=== PATIENT | female | born 1955 | race Caucasian/White ===

== ENCOUNTER 2016-04-05 07:39 | Day surgery (SDC) | payer BC ==
[2016-04-04 08:25] VITALS: BMI 22.6
[~2016-04-05 07:39] MED LIST: LACTATED RINGERS 1,000 ML IV SCH
[2016-04-05] MEDS ORDERED: LIDOCAINE 1% 20 ML VIAL (10MG/ML) FOR IV START INTRADERMA ONE (07:42)
[2016-04-05 07:54] VITALS: TEMP 97.4
[2016-04-05] MEDS ORDERED: PROPOFOL 10 MG/ML 20 ML VIAL IV ONE (09:03)
[2016-04-05] MEDS ORDERED: LIDOCAINE 1% INJ 10MG/ML (20 ML MDV) ONE (09:03)
[2016-04-05] MEDS ORDERED: GLUCAGON 1 MG/ML VIAL ONE (09:03)
--- NOTE | 2016-04-05 09:18 | P.GSHP ---
History of Present Illness H&P Date: 04/05/16 Chief Complaint: Screening colonoscopy This is a 60-year-old female referred from Lianna Guidry and Lesli Vance. Patient presents today for screening colonoscopy. She's never had a colonoscopy before. Past Medical History Past Medical History: Cancer Additional Past Medical History / Comment(s): SCREENING. 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 HAS SMOKED FOR PAST 40 YEARS Past Drug Use History: None Reported - Past Family History Brother(s) Family Medical History: Cancer Mother Family Medical History: Cancer Medications and Allergies Home Medications Medication Instructions Recorded Confirmed Type No Known Home Medications [No 04/04/16 04/04/16 History Known Home Medications] Allergies Allergy/AdvReac Type Severity Reaction Status Date / Time No Known Allergies Allergy Verified 04/04/16 08:18 Surgical - Exam Vital Signs Temp Pulse Resp BP Pulse Ox 97.4 F L 83 16 119/78 98 04/05/16 07:48 04/05/16 07:48 04/05/16 07:48 04/05/16 07:48 04/05/16 07:48 - General well developed, no distress - Eyes PERRL - ENT normal pinna - Neck no masses - Respiratory normal expansion - Cardiovascular Rhythm: regular - Abdomen Abdomen: soft, non tender Assessment and Plan Plan: We'll perform screening colonoscopy.
[2016-04-05] MEDS ORDERED: LACTATED RINGERS 1,000 ML IV ONE (09:54)
--- NOTE | 2016-04-05 09:55 | P.OP ---
Date of Procedure: 04/05/16 Preoperative Diagnosis: Screening colonoscopy Postoperative Diagnosis: Colonic polyp. Procedure(s) Performed: Colonoscopy Anesthesia: MAC Surgeon: Javier Burgos Pathology: other (Colon polyps) Condition: stable Disposition: PACU Description of Procedure: The patient's placed on the endoscopy table lateral position. She received IV sedation. Digital rectal exam was performed which revealed no abnormalities. The flexible colonoscope was then placed patient anus and passed throughout the entire colon. The ileocecal valve was visualized. Cecum was seen. This appeared normal. Scope was brought back and in the right colon there is small polyp seen was removed with snare. Scope was then brought further and in the proximal transverse colon there were polyp seen was removed with a forcep and stapler. The scope was withdrawn remainder of the transverse colon appeared normal. In the descending; was mild diverticular changes. Scope was then brought back the rectum this appeared normal. Scope was withdrawn for patient.
[2016-04-05 10:13] VITALS: BP 112/74; PULSE 67; RESP 18
== END 2016-04-05 10:56 | disposition home or self-care (01) ==
LOC: ORWHC2ENDO 07:39
PROVIDERS: ATTEND Surgery
DX: Z12.11 Encounter for screening for malignant neoplasm of colon (principal); D12.3 Benign neoplasm of transverse colon; K57.30 Diverticulosis of large intestine without perforation or abscess without bleeding; Z85.828 Personal history of other malignant neoplasm of skin; F17.210 Nicotine dependence, cigarettes, uncomplicated
CPT/HCPCS: 88305; 45380; 45385; J1610; J2001; J2704; 99153

== ENCOUNTER → 2020-01-13 | Outpatient (CLI) | payer BC ==
[2020-01-13 12:19] VITALS: BP 154/83; PULSE 76; RESP 18; TEMP 97.9
--- NOTE | 2020-01-13 13:29 | P.GSHP ---
History of Present Illness H&P Date: 01/13/20 Chief Complaint: right breast stage IA invasive ductal cancer Pooja is a 64-year-old white female seen in consultation for Dr. Roca who had a recent ultrasound core biopsy of the right breast which revealed invasive ductal carcinoma. This was detected on a routine screening mammogram. She had not felt any lumps masses or nodules of concern in her breast. She is not complaining of any pain in her breast. No abnormal nipple discharge or skin changes. No lesions of concern were detected in the left breast. Caffeine: none Nicotine: 5-6 cigarettes per day Theophylline: daily Family History: maternal grandfather: cancer ? type sister: bladder cancer brother: colon and lung lcancer patient: basal cell twice/nose Hormonal history: menarche: 13 , breast fed: no, age at first : 23 menopause: 45 BCP: 4 years hormones: none Surgical history: Mohs chemosurgery for her nose Medical history: none Social History: Nicotine: 5-6 cigarettes per day Alcohol: Occasional Drugs: Negative - Constitutional Constitutional: Denies chills, Denies fever - EENT Eyes: denies blurred vision, denies pain Ears: deny: decreased hearing, tinnitus Ears, nose, mouth and throat: Denies headache, Denies sore throat - Breasts Breasts: bilateral: as per HPI - Cardiovascular Cardiovascular: Denies chest pain, Denies shortness of breath - Respiratory Respiratory: Denies cough, Denies 7 - Gastrointestinal Gastrointestinal: Denies abdominal pain, Denies diarrhea, Denies nausea, Denies vomiting - Genitourinary (Female) Genitourinary: Denies dysuria, Denies hematuria - Menstruation Menstruation: Reports postmenopausal - Musculoskeletal Musculoskeletal: Denies myalgias - Integumentary Integumentary: Denies pruritus, Denies rash - Neurological Neurological: Denies numbness, Denies weakness - Psychiatric Psychiatric: Denies anxiety, Denies depression - Endocrine Endocrine: Denies fatigue, Denies weight change - Hematologic/Lymphatic Comment: none Hematologic/Lymphatic: Reports as per HPI Past Medical History Past Medical History: Cancer Additional Past Medical History / Comment(s): SCREENING. 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 HAS SMOKED FOR PAST 40 YEARS Past Drug Use History: None Reported - Past Family History Brother(s) Family Medical History: Cancer Mother Family Medical History: Cancer Medications and Allergies Home Medications Medication Instructions Recorded Confirmed Type Ergocalciferol [Vitamin D2] 50,000 unit PO Q7D 01/13/20 01/13/20 History Allergies Allergy/AdvReac Type Severity Reaction Status Date / Time No Known Allergies Allergy Verified 01/13/20 12:14 Surgical - Exam Vital Signs Temp Pulse Resp BP Pulse Ox 97.9 F 76 18 154/83 97 01/13/20 12:14 01/13/20 12:14 01/13/20 12:14 01/13/20 12:14 01/13/20 12:14 BMI 24.8 - General well developed, well nourished, no distress - Eyes normal ocular movement - ENT no hearing loss, no congestion - Neck no masses, trachea midline - Respiratory normal expansion, normal respiratory effort - Cardiovascular Rhythm: regular - Abdomen Abdomen: soft, non tender, no guarding, no rigid, no rebound - Integumentary normal turgor - Neurologic no disoriented, no combative - Musculoskeletal normal gait - Psychiatric oriented to time, oriented to person, oriented to place, speech is normal breast exam: BRA: 36b inspection: bilateral grade 2 ptosis Palpation: right Breasts: There is some erythema over the anterior aspect of the right b reast possibly related to her Betadine was applied at the time of Zyrte to core biopsy this is improved as per the patient and her , multiple positional exam no dominant masses or nodules of concern Right axilla: No adenopathy of concern left breast: Multiple positional exam no dominant masses or nodules of concern, fibrocystic changes Left axilla: No adenopathy of concern Results Mammogram and ultrasound reviewed with Dr. Connolly Pathology report reviewed invasive ductal carcinoma grade2/ER/FL and HER-2/jennifer status pending Assessment and Plan Assessment: Impression: 1. Stage 1A right breast cancer Plan: 1. Right breast needle localization lumpectomy, sentinel node injection, sentinel node biopsy, possible axillary dissection, possible onco-plastic tissue transfer 2. Presentation case at tumor board 3. Patient is meeting with radiation oncology 4. I discussed mastopexy incision with the patient and she would prefer an incision in the breast rather than asymmetry of the nipple areolar complex and will avoid a mastopexy incision 5. Medical clearance with Dr. Roca Risks and benefits of the procedure were discussed with the patient. Treatment options ranging from mastectomy plus or minus reconstruction to lumpectomy with possible onco plastic tissue transfer were discussed. The patient wishes to proceed with a lumpectomy. She understands if margins were to be positive that it might be necessary to have repeat excision. Discussed utilizing a mastopexy incision and that this would result in asymmetry she would prefer to avoid the asymmetry and forego the mastopexy incision. We have also discussed sentinel node biopsy. Risks include but are not limited to bleeding, infection, reaction to the anesthetic. She understands that if methylene blue were to be injected she may have some tissue necrosis. If axilla dissection were performed there is possibility of injury to the thoracodorsal and long thoracic nerves,or lymphedema. She understands and wishes to proceed. CC: DR. Roca encounter 45 minutes, > 50% of time in planning and counselling
== END | disposition home or self-care (01) ==
LOC: WWCWWP 11:49
PROVIDERS: ATTEND Surgery
DX: Z53.9 Procedure and treatment not carried out, unspecified reason (principal)

== ENCOUNTER 2020-02-01 08:45 | Day surgery (SDC) | payer BC ==
[2020-01-28 10:31] VITALS: BMI 24.4
[~2020-02-01 08:45] MED LIST changes: +ALPRAZolam 0.25 MG TAB PO PRN; +DEXAMETHASONE SOD PHOSPHATE 4 MG/ML 1 ML VIAL IV ONE; +HYDROmorphone 0.5 MG/0.5 ML SYRINGE IVP PRN; +LIDOCAINE 1% (10MG/ML) FOR IV START INTRADERMA PRN; +ONDANSETRON 4 MG/2 ML VIAL IVP ONE; +Pre Op ABX Message 1 EACH MISC MISCELLANE ONE
[2020-02-01] MEDS ORDERED: CHLOROPROCAINE 3% 30 MG/ML 20 ML VIAL MISCELLANE ONE (10:32)
--- NOTE | 2020-02-01 10:59 | NM ---
EXAMINATION TYPE: NM sentinel node injection DATE OF EXAM: 02/01/2020 COMPARISON: 02/01/2020, 12/30/2019 HISTORY: Post needle localization TECHNIQUE AND FINDINGS: The procedure of sentinel lymph node injection was explained to the patient. The benefits, alternatives, and risks were discussed. An informed consent was then obtained. Overlying skin is cleaned with sterile alcohol. Following this, 532 uCi Tc99m Tilmanocept was inject ed in the upper outer aspect of the right nipple intradermally. The patient tolerated the procedure well without any immediate complication. The patient was kept in the radiology department for short stay after the procedure and then taken to surgery for surgical p rocedure what is presumed intraoperative gamma probe will be used for sentinel lymph node detection. IMPRESSION: Right breast radiotracer injection for sentinel node localization as above.
[2020-02-01] MEDS: HEPARIN SODIUM,PORCINE 5,000 UNIT/ML 1 ML VIAL SQ PRN ×2 (11:13→12:20)
--- NOTE | 2020-02-01 14:21 | P.NAPBC ---
NAPBC Queries - NAPBC Queries Was patient's case review presented at [facility] tumor board? If no, comment.: Yes Was patient's pathology reviewed at [facility]? If no, comment.: Yes Was breast conservation surgery offered? If no, comment.: Yes Was sentinel node biopsy offered? If no, comment.: Yes Was diagnosis confirmed by percutaneous core biopsy? If no, comment.: Yes Is patient mastectomy patient?: No Was a preop referral to reconstructive surgeon offered?: No Clinical Stage: stage IA
[2020-02-01] MEDS ORDERED: ePHEDrine SULFATE/0.9% NACL/PF 50 MG/5 ML SYRINGE IV ONE (14:54)
[2020-02-01] MEDS ORDERED: LIDOCAINE 1% INJ 10MG/ML (20 ML MDV) ONE (14:54)
[2020-02-01] MEDS ORDERED: SUCCINYLCHOLINE CHLORIDE 100 MG/5 ML SYR IV ONE (14:54)
[2020-02-01] MEDS ORDERED: PHENYLEPHRINE-0.9% NACL SYG 1 MG/10 ML SYRINGE ONE (14:54)
[2020-02-01] MEDS ORDERED: PROPOFOL 10 MG/ML 20 ML VIAL IV ONE (14:54)
[2020-02-01] MEDS ORDERED: MIDAZOLAM 2 MG/2 ML VIAL ONE (14:54)
[2020-02-01] MEDS ORDERED: fentaNYL (PF) 50 MCG/ML 2 ML AMP ONE (14:54)
[2020-02-01] MEDS ORDERED: ROCURONIUM 10 MG/ML (10 ML VIAL) IV ONE (14:54)
[2020-02-01] MEDS ORDERED: LACTATED RINGERS 1,000 ML IV ONE (16:23)
--- NOTE | 2020-02-01 16:48 | P.OP ---
Date of Procedure: 02/01/20 Preoperative Diagnosis: Right breast invasive ductal carcinoma Postoperative Diagnosis: Same Procedure(s) Performed: Needle localization excisional lumpectomy, sentinel node biopsy, and onco- plastic tissue transfer 54 cm lesion, 53 cm inferior pillar, 43 cm superior pillar, centimeters squared total 47 Anesthesia: MARIA RA Surgeon: Xi Mata Estimated Blood Loss (ml): 5 IV fluids (ml): 900 Pathology: other (sentinal node, breast tissue) Condition: stable Disposition: same day Indications for Procedure: right brest invasive ductal cancer Operative Findings: dense breast tissue Description of Procedure: Pooja is a 64-year-old white female diagnosed with a right breast invasive ductal carcinoma on core biopsy. She was felt to be a candidate for a lumpectomy and sentinel node biopsy. Preoperatively she was seen in the radiology department will lymphokine was injected and bleeding needle localization of the tumor in the right breast was performed. The patient was brought to the operating room. Following induction of general anesthesia interrogation of the axilla revealed radioactivity. The right breast and axilla were prepped and draped in a sterile fashion. The axilla was approached initially. Using the neoprobe the area of greatest radioactivity was identified. An incision was made and carried down to the radioactive lymph node. This was a deep lymph node and dissection was performed using the Harmonic scalpel as well as the electrocautery device. The lymph node was removed. 10 second count was 2561 on the Background count of the axilla was 21. After assured that hemostasis was attained the deep tissues were closed using 3-0 Vicryl suture. The skin was closed with 4-0 Monocryl followed by a nylon skin suture. The area of the breast was approached. An incision was made near the tip of the localizing wire. A superior skin flap was carried up to the skin entrance site of the needle. Careful dissection circumferentially around the ne edle was performed. The specimen was removed and was approximately 5 x 4 centimeters in size. Posterior dissection was on the pectoralis muscle. The specimen was painted for orientation. Radiograph revealed the area of concern about removed. Additional margins superiorly and anteriorly were obtained. After we assured that hemostasis was attained titanium clips were placed. The superior pole was mobilized 4 cm x 3 cm, the inferior pole was mobilized 5 cm x 3 cm. Total tissue mobilized was 47 cm. The superior and inferior pillars were brought together using 3-0 Vicryl suture. The skin was closed using 4-0 Monocryl and a running nylon suture. The patient tolerated procedure in stable condition. All instrument and sponge counts were correct at the end of the case.
--- NOTE | 2020-02-01 16:50 | P.DS ---
Providers Attending physician: Xi Mata Primary care physician: Edinson Roca Plan - Discharge Summary Discharge Rx Participant: Yes New Discharge Prescriptions: No Action Ergocalciferol [Vitamin D2] 50,000 unit PO Q7D Nicotine Patch 1 dose TOPICAL DIRECTED Discharge Medication List Ergocalciferol [Vitamin D2] 50,000 unit PO Q7D 01/13/20 [History] Nicotine Patch 1 dose TOPICAL DIRECTED 01/28/20 [History] Follow up Appointment(s)/Referral(s): Xi Mata MD [STAFF PHYSICIAN] - 1 Week Activity/Diet/Wound Care/Special Instructions: do not drive fro 24 hours from d/c may shower after 48 hours wear bra at all times Discharge Disposition: HOME SELF-CARE
[2020-02-01 17:04] VITALS: TEMP 97.6
[2020-02-01] MEDS ORDERED: KETOROLAC 15 MG/ML 1 ML VIAL IVP ONE (17:28)
[2020-02-01] MEDS ORDERED: HYDROcodone/APAP 5-325MG 1 EACH TAB PO ONE (18:15)
[2020-02-01] MEDS ORDERED: HYDROcodone/APAP 5-325MG 1 EACH TAB ONE (18:16)
[2020-02-01 18:29] VITALS: BP 103/64; PULSE 78; RESP 18
--- NOTE | 2020-02-02 08:59 | MM ---
EXAMINATION TYPE: MG pre op needle loc RT DATE OF EXAM: 02/01/2020 COMPARISON: 02/01/2020, 12/30/2019, 11/26/2019 CLINICAL HISTORY: Right breast mass TECHNIQUE: Needle localization with wire placement and surgical excision of area of concern in the right breast. FINDINGS: The procedure of needle localization with wire placement and than surgical excision was explained to the patient. Benefits, alternatives, and risks were discussed. An informed consent was then obtained. The shortest pathway for procedure was chosen. Shortest pathway was superior approach. The overlying skin was prepped and draped in usual sterile fashion. Lidocaine buffered with bicarbonate was used as anesthetic into the skin and subcutaneous tissue up to the level of area of concern. A 9 cm needle was used. It was placed via a superior approach under mammographic guidance. Subsequent 90 degrees mammogram show the needle to be in satisfactory position relative to the targeted area. At this point, wire was placed and the needle was withdrawn. The wire was fixed to patient's skin. Images were marked for surgeon. The patient tolerated the procedure well without any immediate complication. The patient was kept in the radiology department for short stay after the procedure and then taken to surgery for surgical excision. Surgical clip and wire are identified in specimen mammogram. The patient was kept in hospital for short stay after the procedure and then discharged home in stable condition. IMPRESSION: Successful, uncomplicated needle localization with wire placement and surgical excision of surgical clip in the right breast, full pathology results to follow. Pathology Results: Malignant A. SENTINEL LYMPH NODE, BIOPSY: Lymph node negative for metastasis. CK7 and PHILLY immunoperoxidase stains are confirmatory (controls appropriate). B. ADDITIONAL AXILLARY CONTENTS: Lymph node negative for metastasis. C. RIGHT BREAST, LUMPECTOMY: Invasive high grade ductal carcinoma (Grade 3), margins negative. See Surgical Pathology Cancer Case Summary. D. RIGHT BREAST, NEW ANTERIOR MARGIN, EXCISION: Benign breast tissue. E. RIGHT BREAST, NEW SUPERIOR MARGIN, EXCISION: Benign breast tissue. Recommendation Oncologic management. MTDD
--- NOTE | 2020-02-04 11:03 | MM ---
MG Surgical Specimen RT EXAMINATION TYPE: MG pre op needle loc RT DATE OF EXAM: 02/01/2020 COMPARISON: 02/01/2020, 12/30/2019, 11/26/2019 CLINICAL HISTORY: Right breast mass TECHNIQUE: Needle localization with wire placement and surgical excision of area of concern in the right breast. FINDINGS: The procedure of needle localization with wire placement and than surgical excision was explained to the patient. Benefits, alternatives, and risks were discussed. An informed consent was then obtained. The shortest pathway for procedure was chosen. Shortest pathway was superior approach. The overlying skin was prepped and draped in usual sterile fashion. Lidocaine buffered with bicarbonate was used as anesthetic into the skin and subcutaneous tissue up to the level of area of concern. A 9 cm needle was used. It was placed via a superior approach under mammographic guidance. Subsequent 90 degrees mammogram show the needle to be in satisfactory position relative to the targeted area. At this point, wire was placed and the needle was withdrawn. The wire was fixed to patient's skin. Images were marked for surgeon. The patient tolerated the procedure well without any immediate complication. The patient was kept in the radiology department for short stay after the procedure and then taken to surgery for surgical excision. Surgical clip and wire are identified in specimen mammogram. The patient was kept in hospital for short stay after the procedure and then discharged home in stable condition. IMPRESSION: Successful, uncomplicated needle localization with wire placement and surgical excision of surgical clip in the right breast, full pathology results to follow. RECOMMENDATION: Surgical consultation of the right breast. Oncologic management. RADHA
== END 2020-02-01 18:45 | disposition home or self-care (01) ==
LOC: OR 08:45
PROVIDERS: ATTEND Surgery
DX: C50.911 Malignant neoplasm of unspecified site of right female breast (principal); F17.210 Nicotine dependence, cigarettes, uncomplicated; Z80.0 Family history of malignant neoplasm of digestive organs; Z80.1 Family history of malignant neoplasm of trachea, bronchus and lung; Z80.8 Family history of malignant neoplasm of other organs or systems; Z98.890 Other specified postprocedural states; E55.9 Vitamin D deficiency, unspecified; Z88.4 Allergy status to anesthetic agent
CPT/HCPCS: 19301; 38525; 88342; 88307; 88341; 76098; 38792; A9520; J2400; J2250; J1644; J1100; J2405; J2001; J3010; J1885; J2370; J0330; J2704

== ENCOUNTER → 2020-02-10 | Outpatient (CLI) | payer BC ==
[2020-02-10 16:16] VITALS: BP 120/81; PULSE 78; RESP 18; TEMP 97.9
--- NOTE | 2020-02-10 16:24 | P.PN ---
Progress Note - Text Progress Note Date: 02/10/20 Pooja is a 64 year old white female status post a right breast lumpectomy and sentinel node biopsy on 02-01-20. Pathology revealed a 7 mm invasive ductal carcinoma margins were negative and sentinel lymph node was negative. She did develop a reaction to the tape postprocedure as well as the surgical bra with a rash that is resolved at this time. She does have some mild swelling at the lumpectomy site. Physical exam: Lungs: Clear Heart: Regular rate and rhythm Incision site axilla and breast clean and dry sutures ready for removal Probable seroma at the lumpectomy site have recommended aspiration of seroma Area of the skin was prepped using alcohol a 20 mL syringe with an 18-gauge needle was inserted into the area of concern and 45 mL of straw-colored fluid was removed with resolution of the seroma Impression/Plan 1. Patient doing well postop stage IA invasive ductal carcinoma 2. Follow up with radiation oncology 3. Follow-up medical oncology 4. Follow-up here in 1 week to follow area of seroma CC: Dr. Roca
== END | disposition home or self-care (01) ==
LOC: WWCWWP 16:04
PROVIDERS: ATTEND Surgery
DX: Z53.9 Procedure and treatment not carried out, unspecified reason (principal)

== ENCOUNTER → 2020-02-17 | Outpatient (CLI) | payer BC ==
--- NOTE | 2020-02-17 15:34 | P.PN ---
Progress Note - Text Progress Note Date: 02/17/20 Pooja is a 64 year old white female status post a right breast lumpectomy and sentinel node biopsy on 02-01-20. Pathology revealed a 7 mm invasive ductal carcinoma margins were negative and sentinel lymph node was negative. She did develop a reaction to the tape postprocedure as well as the surgical bra with a rash that is resolved at this time. She does have some mild swelling at the lumpectomy site. In this time the patient does have some erythema superior to the area of the incision there was seroma was aspirated last week. She has not had any fever or chills. She does note some fullness in the area. She had an appointment with medical oncology and they have opted not to do chemotherapy. The benefit would be approximately 3% and she has decided not to have chemotherapy. She will have radiation therapy. Physical exam: Lungs: Clear Heart: Regular rate and rhythm Incision site axilla and breast clean and dry sutures were removed last week Probable seroma at the lumpectomy site have recommended aspiration of recurrent seroma Area of the skin was prepped using alcohol a 20 mL syringe with an 18-gauge needle was inserted into the area of concern and 38 mL of more turbid colored fluid than last week was removed with resolution of the seroma; the specimen was sent for culture and sensitivity Impression/Plan 1. Patient doing well postop stage IA invasive ductal carcinoma 2. Follow up with radiation oncology 3. Follow-up medical oncology 4. Follow-up here in 1 week to follow area of seroma 5. Antibiotics/Keflex CC: Dr. Roca
== END | disposition home or self-care (01) ==
DX: Z53.9 Procedure and treatment not carried out, unspecified reason (principal)

== ENCOUNTER → 2020-03-09 | Outpatient (CLI) | payer BC ==
[2020-03-09 11:19] VITALS: BP 104/73; PULSE 80; RESP 18; TEMP 97.6
--- NOTE | 2020-03-09 11:50 | P.PN ---
Progress Note - Text Progress Note Date: 03/09/20 Pooja is a 64 year old white female status post a right breast lumpectomy and sentinel node biopsy on 02-01-20. Pathology revealed a 7 mm invasive ductal carcinoma margins were negative and sentinel lymph node was negative. She did develop a reaction to the tape postprocedure as well as the surgical bra with a rash that is resolved at this time. She does have some mild swelling at the lumpectomy site. This area has been aspirated twice. States she had some spontaneous drainage on , has been better since that time. She has not had any fever or chills. She had an appointment with medical oncology and they have opted not to do chemotherapy. The benefit would be approximately 3% and she has decided not to have chemotherapy. She will have radiation therapy. Physical exam: Lungs: Clear Heart: Regular rate and rhythm Incision site axilla and breast clean and dry, the incision on the breast has thin skin Probable seroma at the lumpectomy site have recommended aspiration of recurrent seroma On approximately 45 cc fluid was aspirated On approximately 38 cc of fluid was aspirated The the patient had many gram-positive cocci present. Although the patient was on Keflex it appears that this was resistant however she has had a good response with resolution of any erythema. It is sensitive to Bactrim. 03-09-20 aspiration approximately 1 cc of fluid Impression/Plan 1. Patient doing well postop stage IA invasive ductal carcinoma 2. Follow up with radiation oncology 3. saw medical oncology and will not have any chemotherapy 4. Follow-up here in 1 week to follow area of seroma 5. Antibiotics/BActrim and Diflucan 150mg times one CC: Dr. Roca
--- NOTE | 2020-03-09 11:52 | P.PN ---
Progress Note - Text Progress Note Date: 03/09/20 Aspiration of seroma. There is concern in the right breast at the incision was prepped using alcohol. An 18-gauge needle on a 12 mL syringe was inserted into the area. Approximately 1 mL of fluid was obtained. Patient tolerated the procedure without difficulty there was complete resolution of any seroma. Steri-Strip was applied to reinforce the incision. The patient was given a prescription for Bactrim as the prior specimen had been sensitive to Bactrim and the aspirate appeared mildly turbid. He was also given a prescription for Diflucan. The patient will follow-up next week.
== END | disposition home or self-care (01) ==
LOC: WWCWWP 11:07
PROVIDERS: ATTEND Surgery
DX: L76.34 Postprocedural seroma of skin and subcutaneous tissue following other procedure (principal)
CPT/HCPCS: 87070; 87075; 87205

== ENCOUNTER → 2020-03-16 | Outpatient (CLI) | payer BC ==
[2020-03-16 14:31] VITALS: BP 110/76; RESP 18; TEMP 97.6
--- NOTE | 2020-03-16 14:38 | P.PN ---
Progress Note - Text Progress Note Date: 03/16/20 Pooja is a 64 year old white female status post a right breast lumpectomy and sentinel node biopsy on 02-01-20. Pathology revealed a 7 mm invasive ductal carcinoma margins were negative and sentinel lymph node was negative. She did develop a reaction to the tape postprocedure as well as the surgical bra with a rash that is resolved at this time. She does have some mild swelling at the lumpectomy site. This area has been aspirated twice. States she had some spontaneous drainage on , has been better since that time. She has not had any fever or chills. She had an appointment with medical oncology and they have opted not to do chemotherapy. The benefit would be approximately 3% and she has decided not to have chemotherapy. She will have radiation therapy. The lesion was aspirated on her last visit and cultures did not show any organisms. The patient Steri-Strips have come off she did have again a skin reaction to the Steri-Strips but otherwise is doing well. Incision: Clean and dry well-healed no evidence of any infection mild estimated Steri-Strips were applied Steri-Strip has fallen off Impression/: 1. Patient's incisions well-healed stage IA right breast cancer 2. Follow-up radiation oncology 3. Patient is seeing medical oncology and opted for no chemotherapy CC: Dr. Roca
== END | disposition home or self-care (01) ==
LOC: WWCWWP 14:16
PROVIDERS: ATTEND Surgery
DX: Z53.9 Procedure and treatment not carried out, unspecified reason (principal)

== ENCOUNTER → 2020-07-13 | Outpatient (CLI) | payer BC, MEDICARE ==
[2020-07-13 16:16] VITALS: BP 124/84; PULSE 82; RESP 18; TEMP 97.6
--- NOTE | 2020-07-13 16:18 | P.PN ---
Subjective Progress Note Date: 07/13/20 Principal diagnosis: right breast [id number] Pooja is a 64-year-old white female seen in consultation for Dr. Roca who had an ultrasound core biopsy of the right breast which revealed invasive ductal carcinoma. This was detected on a routine screening mammogram. She had not felt any lumps masses or nodules of concern in her breast. She underwent a right breast lumpectomy and sentinel node biopsy in . Pathology revealed a 7 mm invasive ductal carcinoma margins were negative and sentinel lymph node was negative. She did develop a reaction to the tape postprocedure as well as to the surgical block which resolved. The patient underwent 4 weeks of radiation therapy. She did not have chemotherapy. She did not have any hormonal therapy. She does not have any complaints at this time. She has not noted any new lumps masses or nodules in her breast. Her last mammogram was in October of 2019. Caffeine: none Nicotine: 5-6 cigarettes per day Theophylline: daily Family History: maternal grandfather: cancer ? type sister: bladder cancer brother: colon and lung cancer patient: basal cell twice/nose Hormonal history: menarche: 13 , breast fed: no, age at first : 23 menopause: 45 BCP: 4 years hormones: none Surgical history: Mohs chemosurgery for her nose Right breast lumpectomy and sentinel node biopsy Medical history: none Social History: Nicotine: 5-6 cigarettes per day Alcohol: Occasional Drugs: Negative - Constitutional Constitutional: Denies chills, Denies fever - EENT Eyes: denies blurred vision, denies pain Ears: deny: decreased hearing, tinnitus Ears, nose, mouth and throat: Denies headache, Denies sore throat - Breasts Breasts: bilateral: as per HPI - Cardiovascular Cardiovascular: Denies chest pain, Denies shortness of breath - Respiratory Respiratory: Denies cough - Gastrointestinal Gastrointestinal: Denies abdominal pain, Denies diarrhea, Denies nausea, Denies vomiting - Genitourinary (Female) Genitourinary: Denies dysuria, Denies hematuria - Menstruation Menstruation: Reports postmenopausal - Musculoskeletal Musculoskeletal: Denies myalgias - Integumentary Integumentary: Denies pruritus, Denies rash - Neurological Neurological: Denies numbness, Denies weakness - Psychiatric Psychiatric: Denies anxiety, Denies depression - Endocrine Endocrine: Denies fatigue, Denies weight change - Hematologic/Lymphatic Comment: none Hematologic/Lymphatic: Reports as per HPI Objective - Exam BMI 25 - Constitutional General appearance: Present: average body habitus - EENT Eyes: Present: EOMI ENT: Present: hearing grossly normal - Neck Neck: Present: normal ROM - Respiratory Respiratory: bilateral: CTA - Cardiovascular Rhythm: regular Heart sounds: normal: S1, S2 - Gastrointestinal General gastrointestinal: Present: soft - Integumentary Integumentary: Present: normal turgor - Musculoskeletal Musculoskeletal: Present: gait normal - Psychiatric Psychiatric: Present: A&O x's 3, appropriate affect, intact judgment & insight - Additional findings Additional findings: Bresat exam: BRA: 36B inspection: Well-healed scar right breast from prior lumpectomy Palpation: right breast: Multiple positional exam fibrocystic changes no dominant masses or nodules of concern postop changes Right axilla: No adenopathy of concern Left breast: Positional exam fibrocystic changes no dominant masses or nodules of concern Left axilla: No adenopathy of concern Assessment and Plan Assessment: Impression: 1. stage 1A right breast cancer no evidence of recurrence Plan: 1. repeat bilateral mammogram October 2020, with appointment at that time CC: Dr. Roca
== END ==
LOC: WWCWWP 15:40
PROVIDERS: ATTEND Surgery
DX: C50.911 Malignant neoplasm of unspecified site of right female breast (principal); F17.210 Nicotine dependence, cigarettes, uncomplicated; Z88.8 Allergy status to other drugs, medicaments and biological substances

== ENCOUNTER → 2020-11-10 | Outpatient (CLI) | payer MEDICARE ==
--- NOTE | 2020-11-10 14:14 | MM ---
Reason for exam: additional evaluation requested from prior study. Last mammogram was performed 10 months ago. History: Patient is postmenopausal, has history of breast cancer at age 64, and history of other cancer. Malignant MG pre op needle loc RT of the right breast, February 01, 2020. Lumpectomy of the right breast, February 01, 2020. Physical Findings: Nurse did not find any significant physical abnormalities on exam. MG 3D Diag Mammo W/Cad TIFFANIE Bilateral CC and MLO view(s) were taken. Prior study comparison: December 30, 2019, mammogram, performed at [facility]. November 26, 2019, mammogram, performed at [facility]. November 19, 2019, mammogram, performed at [facility]. October 23, 2018, mammogram, performed at [facility]. The breast tissue is heterogeneously dense. This may lower the sensitivity of mammography. Stable benign calcifications. Stable post operative changes right breast of lumpectomy. No significant new findings when compared with previous films. These results were verbally communicated with the patient and result sheet given to the patient on 11/10/20. ASSESSMENT: Benign, BI-RAD 2 RECOMMENDATION: Follow-up diagnostic mammogram of both breasts in 1 year.
== END | disposition home or self-care (01) ==
LOC: RADMAMWWP 12:52
PROVIDERS: ATTEND Surgery
DX: R92.1 Mammographic calcification found on diagnostic imaging of breast (principal); Z85.3 Personal history of malignant neoplasm of breast; Z78.0 Asymptomatic menopausal state
CPT/HCPCS: 77066; G0279; 77062

== ENCOUNTER → 2020-11-24 | Outpatient (CLI) | payer MEDICARE ==
[2020-11-24 11:23] VITALS: BP 125/87; PULSE 73; RESP 16; TEMP 98.2
--- NOTE | 2020-11-24 11:53 | P.PN ---
Subjective Progress Note Date: 11/24/20 Principal diagnosis: right breast stage IB invasive ductal cancer right breast [id number] stage IB Pooja is a 65-year-old white female seen in consultation for Dr. Roca who had an ultrasound core biopsy of the right breast which revealed invasive ductal carcinoma. This was detected on a routine screening mammogram. She had not felt any lumps masses or nodules of concern in her breast. She underwent a right breast lumpectomy and sentinel node biopsy on . Pathology revealed a 7 mm invasive ductal carcinoma margins were negative and sentinel lymph node was negative. She did develop a reaction to the tape postprocedure as well as to the surgical block which resolved. The patient underwent 4 weeks of radiation therapy. She did not have chemotherapy. She did not have any hormonal therapy. She does not have any complaints at this time. She has not noted any new lumps masses or nodules in her breast. Her last mammogram was bilateral BIRAD 2 on 11-10-20. She is not complaining of any new lumps masses or nodules of concern in either breast. Caffeine: none Nicotine: 5-6 cigarettes per day Theophylline: daily Family History: maternal grandfather: cancer ? type sister: bladder cancer brother: colon and lung cancer patient: basal cell twice/nose Hormonal history: menarche: 13 , breast fed: no, age at first : 23 menopause: 45 BCP: 4 years hormones: none Surgical history: Mohs chemosurgery for her nose Right breast lumpectomy and sentinel node biopsy Medical history: none Social History: Nicotine: 5-6 cigarettes per day Alcohol: Occasional Drugs: Negative - Constitutional Constitutional: Denies chills, Denies fever - EENT Eyes: denies blurred vision, denies pain Ears: deny: decreased hearing, tinnitus Ears, nose, mouth and throat: Denies headache, Denies sore throat - Breasts Breasts: bilateral: as per HPI - Cardiovascular Cardiovascular: Denies chest pain, Denies shortness of breath - Respiratory Respiratory: Denies cough - Gastrointestinal Gastrointestinal: Denies abdominal pain, Denies diarrhea, Denies nausea, Denies vomiting - Genitourinary (Female) Genitourinary: Denies dysuria, Denies hematuria - Menstruation Menstruation: Reports postmenopausal - Musculoskeletal Musculoskeletal: Denies myalgias - Integumentary Integumentary: Denies pruritus, Denies rash - Neurological Neurological: Denies numbness, Denies weakness - Psychiatric Psychiatric: Denies anxiety, Denies depression - Endocrine Endocrine: Denies fatigue, Denies weight change - Hematologic/Lymphatic Comment: none Hematologic/Lymphatic: Reports as per HPI Objective - Vital Signs Vital signs: Vital Signs Temp 98.2 F 11/24/20 11:21 Pulse 73 11/24/20 11:21 Resp 16 11/24/20 11:21 BP 125/87 11/24/20 11:21 Pulse Ox 98 11/24/20 11:21 Intake & Output 11/23/20 11/24/20 11/24/20 18:59 06:59 18:59 Weight 61.689 kg - Constitutional General appearance: Present: cooperative - EENT Eyes: Present: EOMI ENT: Present: hearing grossly normal - Respiratory Respiratory: bilateral: CTA - Cardiovascular Rhythm: regular Heart sounds: normal: S1, S2 - Gastrointestinal General gastrointestinal: Present: soft - Integumentary Integumentary: Present: normal turgor - Musculoskeletal Musculoskeletal: Present: gait normal - Psychiatric Psychiatric: Present: A&O x's 3, appropriate affect, intact judgment & insight - Additional findings Additional findings: Breast Exam: BRA: 36B inspection: Well-healed scar right breast from prior surgery and radiation therapy, bilateral grade 2 ptosis Palpation: Right breast: Multiple positional exam fibrocystic changes, changes from surgical procedure noted but no dominant masses or nodules of concern Right axilla: No adenopathy of concern Left breast: Multiple positional exam fibrocystic changes no dominant masses or nodules of concern Left axilla: No adenopathy of concern Assessment and Plan Assessment: Impression: 1. Patient status post right lumpectomy sentinel node biopsy for stage I be invasive ductal carcinoma, no evidence of recurrent cancer 2. Recent bilateral mammogram [id number] benign BIRADS 2 Plan: 1. Repeat bilateral mammogram in 1 year 2. Follow-up 6 months for examination CC: Dr. Roca
== END ==
LOC: WWCWWP 11:06
PROVIDERS: ATTEND Surgery
DX: Z08 Encounter for follow-up examination after completed treatment for malignant neoplasm (principal); F17.200 Nicotine dependence, unspecified, uncomplicated; Z85.3 Personal history of malignant neoplasm of breast; Z98.890 Other specified postprocedural states; Z88.4 Allergy status to anesthetic agent

== ENCOUNTER → 2021-08-08 | Outpatient (CLI) | payer MEDICARE ==
--- NOTE | 2021-08-09 11:54 | XR ---
EXAMINATION TYPE: XR abdomen 1V DATE OF EXAM: 08/08/2021 COMPARISON: None INDICATION: Post colonoscopy TECHNIQUE: Single view abdomen FINDINGS: Abundant bowel gas is present through the redundant colon. There is especially noted redundancy throu gh the splenic flexure and hepatic flexure. Psoas margins are normal. No organomegaly is present. Barium enema was deferred until the following day. IMPRESSION: 1. Excessive bowel gas present with redundancy of the splenic and hepatic flexures.
== END | disposition home or self-care (01) ==
LOC: RADFLMAIN 11:44
PROVIDERS: ATTEND Surgery
DX: R14.3 Flatulence (principal)
CPT/HCPCS: 74018

== ENCOUNTER → 2021-08-09 | Outpatient (CLI) | payer MEDICARE ==
--- NOTE | 2021-08-09 11:08 | FL ---
EXAMINATION TYPE: FL barium enema w air contrast DATE OF EXAM: 08/09/2021 COMPARISON: NONE HISTORY: Incomplete colonoscopy TECHNIQUE: A double contrast barium enema study is performed. A total of 3 minutes and 45 seconds o f fluoroscopic time was utilized during procedure and 53 images obtained. FINDINGS: Manager Risk Management view of the abdomen shows overall non-obstructive bowel gas pattern. Suboptimal distention of the sigmoid colon which demonstrates a reduced caliber with multiple diverti cula. No evidence of gross mass or large polyp, obstructing or constricting lesion throughout the colon. Appendix was filled and appeared normal. IMPRESSION: Sigmoid colon diverticulosis with reduced caliber, probably related to chronic diverticulosis. Suboptimal assessment of the sigmoid colon, please correlate with colonoscopy results. No gross colonic mass, large polyp or obstructing lesion. A small lesion or polyp cannot be excluded by this barium enema.
== END | disposition home or self-care (01) ==
LOC: RADFLMAIN 08:50
PROVIDERS: ATTEND Surgery
DX: K57.30 Diverticulosis of large intestine without perforation or abscess without bleeding (principal)
CPT/HCPCS: 74280

== ENCOUNTER → 2021-11-13 | Outpatient (CLI) | payer MEDICARE ==
--- NOTE | 2021-11-15 12:15 | MM ---
Reason for Exam: Additional evaluation requested from prior study. Last screening mammogram was performed 12 month(s) ago. Patient History: Menarche at age 12. First Full-Term at age 23. Postmenopausal. Other cancer. Breast cancer, age 64. 02/01/2020, Lumpectomy on the Right side. 02/01/2020, Malignant Core Biopsy on the right side. Prior Study Comparison: 10/23/2018 Screening Mammogram, [facility]. 11/19/2019 Screening Mammogram, [facility]. 11/26/2019 Screening Mammogram, [facility]. 12/30/2019 Screening Mammogram, [facility]. 11/10/2020 Bilateral Diagnostic Mammogram, [facility]. Tissue Density: The breast tissue is heterogeneously dense. This may lower the sensitivity of mammography. Findings: Analyzed By CAD. Post treatment changes with distortion and surgical clips to the right breast upper aspect redemonstrated. Some scattered benign-appearing round calcifications in the bilateral breasts are again seen. Prominent tubular shaped density in the left axilla MLO slice 15 warrants further workup. This was not clearly seen on prior study. Overall Assessment: Incomplete: need additional imaging evaluation, BI-RAD 0 Management: Special View Mammogram of the left breast. Targeted ultrasound left axilla. Downtime dictation. Electronically signed and approved by: Lon Shelley M.D.
== END | disposition home or self-care (01) ==
LOC: RADMAMWWP 11:03
PROVIDERS: ATTEND Surgery
DX: R92.1 Mammographic calcification found on diagnostic imaging of breast (principal); Z78.0 Asymptomatic menopausal state; Z85.3 Personal history of malignant neoplasm of breast
CPT/HCPCS: 77066; G0279; 77062

== ENCOUNTER → 2021-11-16 | Outpatient (CLI) | payer MEDICARE ==
--- NOTE | 2021-11-16 11:14 | USB ---
Reason for Exam: Additional evaluation requested from abnormal screening. Patient History: Menarche at age 12. First Full-Term at age 23. Postmenopausal. Other cancer. Breast cancer, age 64. 02/01/2020, Lumpectomy on the Right side. 02/01/2020, Malignant Core Biopsy on the right side. Technique: Method: Targeted. Prior Study Comparison: 12/30/2019 Screening Mammogram, [facility]. 11/10/2020 Bilateral Diagnostic Mammogram, [facility]. 11/13/2021 Bilateral MG 3D diag mammo w/cad TIFFANIE, [facility]. Findings: There are several linear arranged lymph nodes. No thickened cortex is evident. Suspicious density is not identified.. Overall Assessment: Probably benign, BI-RAD 3 Management: Diagnostic Mammogram of the left breast in 6 months. A clinical breast exam by your physician is recommended on an annual basis and results should be correlated with mammographic findings. Electronically signed and approved by: Oskar Vera D.O. Radiologis
== END | disposition home or self-care (01) ==
LOC: RADUSWWP 10:15
PROVIDERS: ATTEND Surgery
DX: R92.8 Other abnormal and inconclusive findings on diagnostic imaging of breast (principal); Z78.0 Asymptomatic menopausal state

== ENCOUNTER → 2021-11-16 | Outpatient (CLI) | payer MEDICARE ==
[2021-11-16 11:23] VITALS: BP 118/81; PULSE 62; RESP 16; TEMP 97.9
--- NOTE | 2021-11-16 11:40 | P.PN ---
Subjective Progress Note Date: 11/16/21 Principal diagnosis: right breast invasive ductal cancer stage IB right breast [id number] stage IB invasive ductal cancer 2020 Tony underwent a right breast lumpectomy and sentinel node biopsy on . Pathology revealed a 7 mm invasive ductal carcinoma margins were negative and sentinel lymph node was negative. She did develop a reaction to the tape postprocedure as well as to the surgical bra which resolved. The patient underwent 4 weeks of radiation therapy. She did not have chemotherapy. She did not have any hormonal therapy. She does not have any complaints at this time. She has not noted any new lumps masses or nodules in her breast. Her last mammogram was bilateral BIRAD 2 on 11-13-21, additional left breast ultrasound and mammogram requested. The ultrasound was done on 11-16-21 which was probably benign BIRAD 3. She is not complaining of any new lumps masses or nodules of concern in either breast. Caffeine: none Nicotine: 5-6 cigarettes per day Theophylline: daily Family History: maternal grandfather: cancer ? type sister: bladder cancer brother: colon and lung cancer patient: basal cell twice/nose Hormonal history: menarche: 13 , breast fed: no, age at first : 23 menopause: 45 BCP: 4 years hormones: none Surgical history: Mohs chemosurgery for her nose Right breast lumpectomy and sentinel node biopsy Medical history: none Social History: Nicotine: 5-6 cigarettes per day Alcohol: Occasional Drugs: Negative - Constitutional Constitutional: Denies chills, Denies fever - EENT Eyes: denies blurred vision, denies pain Ears: deny: decreased hearing, tinnitus Ears, nose, mouth and throat: Denies headache, Denies sore throat - Breasts Breasts: bilateral: as per HPI - Cardiovascular Cardiovascular: Denies chest pain, Denies shortness of breath - Respiratory Respiratory: Denies cough - Gastrointestinal Gastrointestinal: Denies abdominal pain, Denies diarrhea, Denies nausea, Denies vomiting - Genitourinary (Female) Genitourinary: Denies dysuria, Denies hematuria - Menstruation Menstruation: Reports postmenopausal - Musculoskeletal Musculoskeletal: Denies myalgias - Integumentary Integumentary: Denies pruritus, Denies rash - Neurological Neurological: Denies numbness, Denies weakness - Psychiatric Psychiatric: Denies anxiety, Denies depression - Endocrine Endocrine: Denies fatigue, Denies weight change - Hematologic/Lymphatic Comment: none Hematologic/Lymphatic: Reports as per HPI Objective - Vital Signs Vital signs: Vital Signs Temp 97.9 F 11/16/21 11:18 Pulse 62 11/16/21 11:18 Resp 16 11/16/21 11:18 BP 118/81 11/16/21 11:18 Pulse Ox 98 11/16/21 11:18 FiO2 Intake & Output 11/15/21 11/16/21 11/16/21 18:59 06:59 18:59 Weight 55.792 kg - Constitutional General appearance: Present: cooperative - EENT Eyes: Present: EOMI ENT: Present: hearing grossly normal - Neck Neck: Present: normal ROM - Respiratory Respiratory: bilateral: CTA - Cardiovascular Rhythm: regular Heart sounds: normal: S1, S2 - Integumentary Integumentary: Present: normal turgor - Musculoskeletal Musculoskeletal: Present: gait normal - Psychiatric Psychiatric: Present: A&O x's 3, appropriate affect, intact judgment & insight - Additional findings Additional findings: Breast Examination: BRA: 36B Inspection: Post op and postradiation changes right breast, bilateral grade 2 ptosis Palpation: Right breast: Multiple positional exam fibrocystic changes no dominant masses or nodules of concern, right axilla: No adenopathy of concern Left breast: Multiple positional exam fibrocystic changes no dominant masses or nodules of concern Left axilla: No adenopathy of concern Assessment and Plan Assessment: Impression: right breast 2020 invasive ductal cancer stage I NO evidence of recurrence Plan: We will review mammogram to see if a special view of the left breast as necessary Repeat left axillary ultrasound in 6 months Bilateral mammogram in 1 year Patient is follow up for examination in 6 months CC: Dr. Roca
== END ==
LOC: WWCWWP 10:19
PROVIDERS: ATTEND Surgery
DX: Z08 Encounter for follow-up examination after completed treatment for malignant neoplasm (principal); Z85.3 Personal history of malignant neoplasm of breast; Z98.890 Other specified postprocedural states; F17.210 Nicotine dependence, cigarettes, uncomplicated; Z88.4 Allergy status to anesthetic agent